=== PATIENT | male | born 2000 | race Caucasian/White ===

== ENCOUNTER 2019-09-11 15:01 | Emergency (ER) | payer OTHER ==
[~2019-09-11] VITALS: Ht 182.9 cm; Wt 137.0 kg
[2019-09-11] MEDS ORDERED: CYCL5TAB PO (15:20)
[2019-09-11] MEDS ORDERED: BACITRACIN ZINC OINT UDPKT TOP ONE (16:00)
[2019-09-11] MEDS ORDERED: IBUPROFEN 600MG TABLET PO ONE (16:00)
[2019-09-11] MEDS ORDERED: TETANUS, DIPHTHERIA, PERTUSSIS VAC/PF 0.5ML (>7YR OLD) IM ONE (16:00)
[2019-09-11] MEDS ORDERED: LIDOCAINE HCL/PF 1% 10 MG/ML 5ML VIAL IJ ONE (16:00)
[2019-09-11 16:10] VITALS: BP 131/70
== END 2019-09-11 17:27 | disposition home or self-care (01) ==
LOC: ER 15:01
DX: S51.811A Laceration without foreign body of right forearm, initial encounter (principal); W25.XXXA Contact with sharp glass, initial encounter; Y93.89 Activity, other specified; Y92.89 Other specified places as the place of occurrence of the external cause; Y99.8 Other external cause status; F17.290 Nicotine dependence, other tobacco product, uncomplicated; F12.10 Cannabis abuse, uncomplicated
CPT/HCPCS: 12002; 73090; 90471; 90715; 99283; J3490; Z7610

== ENCOUNTER 2019-09-14 07:37 | Emergency (ER) | payer OTHER ==
[~2019-09-14] VITALS: Ht 182.9 cm; Wt 136.0 kg
[~2019-09-14 07:37] MED LIST: CYCL5TAB PO
[2019-09-14] MEDS ORDERED: BACITRACIN ZINC OINT UDPKT TOP ONE (08:30)
[2019-09-14 09:04] VITALS: BP 145/67
== END 2019-09-14 09:06 | disposition home or self-care (01) ==
LOC: ER 07:37
DX: S51.811D Laceration without foreign body of right forearm, subsequent encounter (principal); F17.290 Nicotine dependence, other tobacco product, uncomplicated; F12.10 Cannabis abuse, uncomplicated; X58.XXXD Exposure to other specified factors, subsequent encounter
CPT/HCPCS: 99282

== ENCOUNTER 2019-09-20 05:30 | Emergency (ER) | payer OTHER ==
[~2019-09-20] VITALS: Ht 182.9 cm; Wt 137.0 kg
[2019-09-20 05:37] VITALS: BP 126/64
== END 2019-09-20 07:00 | disposition home or self-care (01) ==
LOC: ER 05:30
DX: Z48.02 Encounter for removal of sutures (principal); F12.10 Cannabis abuse, uncomplicated; F17.200 Nicotine dependence, unspecified, uncomplicated
CPT/HCPCS: 99283

== ENCOUNTER 2019-09-24 06:03 | Emergency (ER) | payer OTHER ==
[~2019-09-24] VITALS: Ht 182.9 cm; Wt 136.0 kg
[2019-09-24 06:26] VITALS: BP 131/71
[2019-09-24] MEDS ORDERED: BACITRACIN ZINC OINT UDPKT TOP ONE (09:15)
[2019-09-24] MEDS ORDERED: LIDOCAINE HCL/EPINEPHRINE 1%-EPI 1:100,000 30 ML VIAL INFIL ONE (10:30)
[2019-09-24] MEDS ORDERED: CEPHALEXIN 250MG CAPSULE PO ONE (10:30)
[2019-09-24] MEDS ORDERED: LIDOCAINE HCL/EPINEPHRINE 1%-EPI 1:100,000 20 ML VIAL INFIL NR (10:45)
== END 2019-09-24 12:54 | disposition home or self-care (01) ==
LOC: ER 06:03
DX: S41.111A Laceration without foreign body of right upper arm, initial encounter (principal); L03.113 Cellulitis of right upper limb; T81.30XA Disruption of wound, unspecified, initial encounter; R03.0 Elevated blood-pressure reading, without diagnosis of hypertension; X58.XXXA Exposure to other specified factors, initial encounter; Y93.89 Activity, other specified; Y92.89 Other specified places as the place of occurrence of the external cause
CPT/HCPCS: 12002; 99283

== ENCOUNTER 2019-09-28 17:29 | Emergency (ER) | payer OTHER ==
[~2019-09-28] VITALS: Ht 182.9 cm; Wt 137.0 kg
[2019-09-28 17:39] VITALS: BP 125/69
== END 2019-09-28 20:33 | disposition home or self-care (01) ==
LOC: ER 17:29
DX: Z48.00 Encounter for change or removal of nonsurgical wound dressing (principal)
CPT/HCPCS: 99282

== ENCOUNTER 2019-10-04 06:02 | Emergency (ER) | payer OTHER ==
[~2019-10-04] VITALS: Ht 182.9 cm; Wt 132.4 kg
[2019-10-04 07:07] VITALS: BP 119/67
== END 2019-10-04 07:08 | disposition home or self-care (01) ==
LOC: ER 06:02
DX: T81.30XA Disruption of wound, unspecified, initial encounter (principal); S51.811D Laceration without foreign body of right forearm, subsequent encounter; F12.10 Cannabis abuse, uncomplicated; F17.200 Nicotine dependence, unspecified, uncomplicated; X58.XXXD Exposure to other specified factors, subsequent encounter
CPT/HCPCS: 99281; 99283